=== PATIENT | male | born 1995 | race African-American/Black ===

== ENCOUNTER 2018-10-19 15:57 | Emergency (ER) | payer OTHER, MEDICAID ==
[~2018-10-19] VITALS: Ht 182.9 cm; Wt 64.0 kg
[2018-10-19] MEDS ORDERED: IBUPROFEN 600MG TABLET PO ONE (17:15)
[2018-10-19 17:57] VITALS: BP 119/61
== END 2018-10-19 18:07 | disposition home or self-care (01) ==
LOC: ER 17:27
DX: S62.638A Displaced fracture of distal phalanx of other finger, initial encounter for closed fracture (principal); W22.8XXA Striking against or struck by other objects, initial encounter; Y93.89 Activity, other specified; Y92.89 Other specified places as the place of occurrence of the external cause
CPT/HCPCS: 29125; 73130; 99283